=== PATIENT | female | born 1955 | race Caucasian/White ===

== ENCOUNTER 2020-10-26 14:03 | Emergency (ER) | payer OTHER ==
[2020-10-26 14:09] VITALS: TEMP 98.2
--- NOTE | 2020-10-26 15:03 | ED ---
General Adult HPI - General Chief complaint: Nausea/Vomiting/Diarrhea Stated complaint: covid exposure Time Seen by Provider: 10/26/20 14:40 Source: patient, RN notes reviewed Mode of arrival: ambulatory Limitations: no limitations - History of Present Illness Initial comments: Patient is a 64-year-old female that presents to the emergency department co mplaining of one week of symptoms with cough, headache, nausea 2 days. She did note that she was exposed to Covid at a different hospital where she was at for one week with another patient. She was in no apparent distress or pain while sitting up in bed during the exam interview. He did note that she's had a dry cough that been nonproductive gets worse with deep abrasion. She denied any chest pain headache vomiting diarrhea constipation fever fatigue chills. - Related Data Allergies Allergy/AdvReac Type Severity Reaction Status Date / Time bee venom protein (honey bee) Allergy Dyspnea Verified 10/26/20 14:10 iodine Allergy Anaphylaxis Verified 10/26/20 14:10 Review of Systems ROS Statement: Those systems with pertinent positive or pertinent negative responses have been documented in the HPI. ROS Other: All systems not noted in ROS Statement are negative. Past Medical History Past Medical History: GERD/Reflux, Thyroid Disorder Additional Past Medical History / Comment(s): lupus History of Any Multi-Drug Resistant Organisms: None Reported Past Surgical History: Appendectomy, Hysterectomy, Tonsillectomy Additional Past Surgical History / Comment(s): thyroidectomy Past Psychological History: No Psychological Hx Reported Smoking Status: Never smoker Past Alcohol Use History: None Reported Past Drug Use History: None Reported General Exam Limitations: no limitations General appearance: alert, in no apparent distress Head exam: Present: atraumatic, normocephalic, normal inspection Eye exam: Present: normal appearance, PERRL, EOMI. Absent: scleral icterus, conjunctival injection, periorbital swelling Neck exam: Present: normal inspection. Absent: tenderness, meningismus, ly mphadenopathy Respiratory exam: Present: normal lung sounds bilaterally. Absent: respiratory distress, wheezes, rales, rhonchi, stridor Cardiovascular Exam: Present: regular rate, normal rhythm, normal heart sounds. Absent: systolic murmur, diastolic murmur, rubs, gallop, clicks GI/Abdominal exam: Present: soft, normal bowel sounds. Absent: distended, tenderness, guarding, rebound, rigid Extremities exam: Present: normal inspection, full ROM, normal capillary refill. Absent: tenderness, pedal edema, joint swelling, calf tenderness Neurological exam: Present: alert, oriented X3, CN II-XII intact Psychiatric exam: Present: normal affect, normal mood Skin exam: Present: warm, dry, intact, normal color. Absent: rash Course Vital Signs 10/26/20 14:07 Temperature 98.2 F Pulse Rate 85 Respiratory 22 Rate Blood Pressure 112/71 O2 Sat by Pulse 98 Oximetry Medical Decision Making - Medical Decision Making 64-year-old female with exposure to Covid, cough, nausea 2 days. Covid test, chest x-ray ordered. Covid test positive, chest x-ray shows patchy infiltrates. Patient does not meet criteria for monoclonal antibody therapy at this time due to not having any IV pre-existing health conditions, BMI below 35. 6 mg of Decadron ordered IM. Due to difficulty with taking deep breaths and cough on deep inspiration. Case discussed with Dr. Batres, - Lab Data Lab Results 10/26/20 Range/Units 14:12 Coronavirus (PCR) Detected A (Not Detectd) - Radiology Data Radiology results: report reviewed, image reviewed Chest x-ray: There is some patchy density present bilaterally in the lungs no evident pneumothorax or pleural effusion. Cardiac mediastinal silhouette is within normal limits. Aorta is dense. Disposition Clinical Impression: COVID-19 Disposition: HOME SELF-CARE Condition: Stable Instructions (If sedation given, give patient instructions): Coronavirus Disease 2019 (COVID-19) Additional Instructions: Please return to the Emergency Department if symptoms worsen or any other concerns. Follow-up with primary care after 10-14 day quarantine from symptom onset. Can take [id number] anti-inflammatories for symptomatically control fevers muscle aches and pains. Increase oral fluids, get plenty or rest. Is patient prescribed a controlled substance at d/c from ED?: No Referrals: Jeanine Gorman MD [Primary Care Provider] - 1-2 days Time of Disposition: 16:14
--- NOTE | 2020-10-26 15:34 | XR ---
EXAMINATION TYPE: XR chest 1V portable DATE OF EXAM: 10/26/2020 COMPARISON: NONE HISTORY: Covid exposure, fatigue and nausea TECHNIQUE: Single frontal view of the chest is obtained. FINDINGS: There is some patchy density present bilaterally in the lungs. No evident pneumothorax or pleural effusion. Cardiac mediastinal silhouette is within normal limits. Aorta is dense. IMPRESSION: Correlate for possible pneumonia.
[2020-10-26] MEDS ORDERED: DEXAMETHASONE SOD PHOSPHATE 4 MG/ML 1 ML VIAL IM STA (16:13)
[2020-10-26 17:10] VITALS: BP 118/80; PULSE 81; RESP 19
== END 2020-10-26 17:10 | disposition home or self-care (01) ==
LOC: EC 14:03
DX: U07.1 COVID-19 (principal); Z91.030 Bee allergy status; Z91.048 Other nonmedicinal substance allergy status
CPT/HCPCS: 87635; 71045; 99284; 96372; J1100

== ENCOUNTER → 2021-07-07 | Outpatient (CLI) | payer OTHER ==
--- NOTE | 2021-07-07 09:12 | US ---
EXAMINATION TYPE: US abdomen complete DATE OF EXAM: 07/07/2021 COMPARISON: NONE CLINICAL HISTORY: 65-year-old female R10.10 upper abd pain. Intermittent RUQ pain N/V x 1 month, gets worse after eating TECHNIQUE: Multiple sonographic images of the abdomen are obtained. FINDINGS: EXAM MEASUREMENTS: Liver Length: 16.2 cm Gallbladder Wall: 0.2 cm CBD: 0.4 cm Spleen: Unable to adequately visualize due to overlying bowel gas. Right Kidney: 10.1 x 4.6 x 5.1 cm Left Kidney: 10.4 x 5.5 x 4.9 cm Pancreas: visualized portions wnl, limited by overlying midline bowel gas Liver: wnl Gallbladder: wnl Evidence for sonographic Moraes's sign: yes CBD: visualized portions wnl, limited by overlying bowel gas Spleen: obscured by overlying bowel gas Right Kidney: wnl Left Kidney: visualized portions wnl, limited by rib shadowing and overlying bowel gas Upper IVC: wnl Abd Aorta: wnl IMPRESSION: No gallstones or biliary ductal dilatation. No ancillary findings of acute cholecystitis. However, so nographic Moraes sign is reported positive. This could reflect referred pain. If further imaging eval uation of the gallbladder is desired, HIDA scan can be considered.
== END | disposition home or self-care (01) ==
LOC: RADUSWWP 08:19
PROVIDERS: ATTEND Family Medicine
DX: R10.11 Right upper quadrant pain (principal); R11.2 Nausea with vomiting, unspecified
CPT/HCPCS: 76700

== ENCOUNTER → 2021-08-12 | Outpatient (CLI) | payer OTHER ==
--- NOTE | 2021-08-12 10:30 | CT ---
EXAMINATION TYPE: CT abdomen pelvis wo con DATE OF EXAM: 08/12/2021 COMPARISON: Ultrasound 07/07/2021 HISTORY: 65-year-old female R10.[address] DLP: 1170 mGycm. Automated exposure control for dose reduction was used. TECHNIQUE: Contiguous axial scanning of the abdomen and pelvis without IV contrast. Coronal and sagit iesha reconstructions performed. FINDINGS: Heart normal size without pericardial effusion. Lung bases clear without pleural effusion. Possible tiny hiatal hernia. Noncontrast appearance of the liver, gallbladder, adrenal glands, kidneys, spleen, and pancreas show no gross abnormality. No dilated small bowel, free fluid, or free air. No mesenteric or retroperitoneal lymphadenopathy. Appendix not discretely visualized. No secondary findings of acute appendicitis in the right lower qu adrant. Oral contrast has progressed to the ascending colon. There is moderate stool burden. Minimal divertic ular change proximal sigmoid colon. No pericolonic inflammatory change. Mild circumferential bladder wall thickening. Mild pelvic floor relaxation. Uterus surgically absent. Ovaries are either small or surgically absent. No abnormal fluid collection in the pelvis or pelvic lymphadenopathy. Pelvic phlebolith. Bones: Mild degenerative change at the hips. Facet arthropathy lower lumbar spine. Accentuated lumbar lordosis with grade 1 anterolisthesis L4-L5. Mild to moderate degenerative disc disease visualized l ower thoracic spine. Superior endplate Schmorl's node appears chronic at T12. IMPRESSION: 1. Mild circumferential bladder wall thickening may be chronic from the patient. Correlate to exclud e cystitis. 2. Mild pelvic floor relaxation. Status post hysterectomy. 3. Moderate stool burden. Minimal diverticular change along the proximal sigmoid without evidence fo r acute diverticulitis.
== END | disposition home or self-care (01) ==
LOC: RADCTMAIN 08:44
PROVIDERS: ATTEND Family Medicine
DX: N32.89 Other specified disorders of bladder (principal); N81.89 Other female genital prolapse; K56.41 Fecal impaction; K57.30 Diverticulosis of large intestine without perforation or abscess without bleeding; Z90.710 Acquired absence of both cervix and uterus
CPT/HCPCS: 74176

== ENCOUNTER → 2023-10-08 | Outpatient (CLI) | payer MEDICARE, OTHER ==
[2023-10-08 11:44] LABS: African American GFR (CKD) >90 (>60 ml/min/1.73 sqM); Blood Urea Nitrogen 16 mg/dL (7-17); Non-African American GFR(CKD) >90 (>60 ml/min/1.73 sqM)
--- NOTE | 2023-10-08 12:20 | CT ---
EXAMINATION TYPE: CT soft tissue neck w con DATE OF EXAM: 10/08/2023 COMPARISON: None HISTORY: chronic lymphadenitis from right ear down to right jaw, pt is not able to turn her head with out pain or hyper extend neck CT DLP: 805.3 mGycm CONTRAST: CT scan of the neck is performed with IV Contrast, patient injected with 100 mL of Isovue 300. Contrast enhanced CT of the neck was performed from the skull base through the lung apices. AIRWAY: The supraglottic, glottic, and subglottic portions of the airway appear patent and free of mass. SALIVARY GLANDS: The submandibular and parotid glands are free of mass or inflammatory process. THYROID GLAND: Diminutive thyroid lobes. LYMPH NODES: Multiple enlarged bilateral internal jugular chain at the cecum measuring up to 1.4 cm o n the right and up to 1.2 cm on the left. A couple of enlarged lymph nodes are seen within the subcut aneous fat adjacent to the posterior spinous musculature measuring up to 1.1 cm on the left and subce ntimeter on the right. There are perisubmandibular lymph nodes seen up to 9 mm on the right 1.1 cm on the left. Submental adenopathy measuring up to 1.6 cm. Bilateral axillary adenopathy measuring up to 1.8 cm on the left and up to 1.6 cm on the right. Another couple of prevascular space mediastinal ly mph nodes measuring subcentimeter in size. LUNG APICES: No nodule or mass is seen. OTHER: Vascular structures are patent. No significant degenerative change of the cervical spine. N o abscess seen. IMPRESSION: 1. Nonspecific adenopathy as discussed. Correlate for lymphoma.
== END | disposition home or self-care (01) ==
LOC: RADCTMAIN 11:06
PROVIDERS: ATTEND Family Medicine
DX: I88.1 Chronic lymphadenitis, except mesenteric (principal)
CPT/HCPCS: 82565; 84520; 70491; 36415; Q9967

== ENCOUNTER → 2023-11-23 | Outpatient (CLI) | payer MEDICARE, OTHER ==
[2023-11-23 09:45] LABS: African American GFR (CKD) >90 (>60 ml/min/1.73 sqM); Blood Urea Nitrogen 15 mg/dL (7-17); Non-African American GFR(CKD) >90 (>60 ml/min/1.73 sqM)
--- NOTE | 2023-11-23 11:15 | CT ---
EXAMINATION TYPE: CT abdomen pelvis w con DATE OF EXAM: 11/23/2023 COMPARISON: 08/12/2021 HISTORY: I88.1 CHRONIC LYMPHADENITIS, EXCEPT MESENTERIC CONTRAST: CT scan of the abdomen and pelvis is performed with Oral Contrast and with IV Contrast, patient injec marisa with 100 mL of Isovue 300. FINDINGS: LUNG BASES-: No visible nodule. No infiltrate. Small hiatal hernia detected. LIVER/GB: No calcified gallstones. No space occupying hepatic lesion. Biliary tree is of normal ca liber. PANCREAS: No inflammation. No distinct mass. SPLEEN: No splenic enlargement. No lesion seen. ADRENALS: No nodule. No thickening. KIDNEYS/BLADDER: No hydronephrosis. No nephrolithiasis. No distinct renal mass. Urinary bladder g rossly unremarkable. BOWEL: Normal appendix. Normal bowel caliber. No inflammation. GENITAL ORGANS: Hysterectomy changes. LYMPH NODES: No greater than 1cm abdominal lymph nodes are appreciated. Mildly prominent left inguin al lymph node measuring 1.1 cm. Multiple subcentimeter right inguinal lymph nodes seen. Left pelvic s idewall adenopathy of 1.5 cm on the left than on the right several enlarged lymph nodes measuring up to 1.5 cm as well. External iliac adenopathy seen left measuring 1.4 cm and on the right subcentimete r in size. AORTA: No significant abnormality. OSSEOUS STRUCTURES: No significant abnormality is seen. OTHER: No significant additional abnormality is seen. IMPRESSION: 1. Nonspecific pelvic adenopathy.
== END ==
LOC: RADCTMAIN 08:46
PROVIDERS: ATTEND Family Medicine
DX: R59.0 Localized enlarged lymph nodes (principal)
CPT/HCPCS: 82565; 84520; 74177; 36415; Q9967

== ENCOUNTER 2023-12-31 07:32 | Day surgery (SDC) | payer MEDICARE, OTHER ==
[2023-12-31 09:21] VITALS: RESP 18; TEMP 98
[2023-12-31 09:59] VITALS: BP 110/74; PULSE 66
--- NOTE | 2023-12-31 11:27 | US ---
EXAMINATION TYPE: US biopsy lymph node DATE OF EXAM: 12/31/2023 9:48 AM CLINICAL INDICATION:Female, 68 years old with history of R59.0 adenopathy; , thyroid nodule. COMPARISON: None ATTENDING: Dr. Rayray Zuleta PROCEDURE: Informed consent was obtained. The risks and benefits of the procedure were discussed with the patien t. The site was marked. Timeout procedure was performed Ultrasound imaging of the thyroid demonstrates left axillary lymph nodes thickened cortex. The patient was prepped, draped in the usual sterile fashion, and locally anesthetized with 1% lidoca ine. 3 18-gauge core needle biopsies were obtained. Samples were sent to the pathology department for further analysis. Patient tolerated the procedure without incident and was sent home in stable cond ition. Coil clip was placed in the lymph node biopsied. IMPRESSION: Successful ultrasound guided left axillary lymph node core biopsy with clip placement.
== END 2023-12-31 09:50 | disposition home or self-care (01) ==
LOC: RADPROMAIN 07:32
PROVIDERS: ATTEND Internal Medicine Hematology & Oncology
DX: C91.10 Chronic lymphocytic leukemia of B-cell type not having achieved remission (principal)
CPT/HCPCS: 88305; 88342; 88341; 76942; 38505; A4648